=== PATIENT | female | born 1960 | race Caucasian/White ===

== ENCOUNTER → 2017-07-03 | Outpatient (CLI) | payer BC, OTHER ==
[~2017-07-03] MED LIST: FENTANYL PF 100 MCG/2ML ONE; FLUMAZENIL 0.1 MG/1 ML, 5ML ONE; GADOBUTROL 7.5 MMOL/7.5 ML PFS ONE; MIDAZOLAM 1 MG/ML, 5ML ONE; NALOXONE 1 MG/ML, 2ML ONE
== END | disposition home or self-care (01) ==
LOC: RAD 09:00
PROVIDERS: ATTEND Psychiatry & Neurology Neurology
DX: R90.82 White matter disease, unspecified (principal); M47.812 Spondylosis without myelopathy or radiculopathy, cervical region
CPT/HCPCS: 70553; 72156; A9585; J2250; J3010; J2310

== ENCOUNTER → 2017-08-11 | Outpatient (CLI) | payer BC, OTHER | LOC: CARD 09:53 | PROVIDERS: ATTEND Family Medicine | DX: G35 Multiple sclerosis (principal); M50.30 Other cervical disc degeneration, unspecified cervical region; R53.1 Weakness | CPT/HCPCS: 95886; 95908 ==

== ENCOUNTER 2020-03-06 13:28 | Outpatient (CLI) | payer BC | END 2020-03-06 23:59 | disposition home or self-care (01) | LOC: CFH 13:28 | PROVIDERS: ATTEND Internal Medicine Cardiovascular Disease | DX: I34.0 Nonrheumatic mitral (valve) insufficiency (principal); E78.5 Hyperlipidemia, unspecified; I10 Essential (primary) hypertension | CPT/HCPCS: 93306 ==